=== PATIENT | male | born 1945 | race Caucasian/White ===

== ENCOUNTER → 2020-10-19 | Outpatient (CLI) | payer MEDICARE, BC ==
[2020-10-19 14:23] LABS: BASOPHILS ABSOLUTE AUTO 0.04 K/mm3 (0.00-0.23); BASOPHILS PERCENT AUTO 0 % (0-2); EOSINOPHILS ABSOLUTE AUTO 0.06 K/mm3 (0.00-0.68); EOSINOPHILS PERCENT AUTO 1 % (0-6); Hematocrit 42.5 % (37.0-53.0); Hemoglobin 14.3 g/dL (13.5-17.5); IMMATURE GRAN ABSOLUTE AUTO 0.07 K/mm3 (0.00-0.10); IMMATURE GRAN PERCENT AUTO 1 % (0-1); LYMPHOCYTES ABSOLUTE AUTO 1.72 K/mm3 (0.84-5.20); LYMPHOCYTES PERCENT AUTO 17 % (21-46); MONOCYTES ABSOLUTE AUTO 0.47 K/mm3 (0.16-1.47); MONOCYTES PERCENT AUTO 5 % (4-13); Mean Corpuscular HGB 31.4 pg (26.0-34.0); Mean Corpuscular HGB Conc 33.6 g/dL (31.5-36.5); Mean Corpuscular Volume 93 fL (80-100); Mean Platelet Volume 10.9 fL (9.1-12.4); NEUTROPHILS PERCENT AUTO 77 % (41-73); Platelet Count 282 K/mm3 (150-400); RDW Coefficient Variation 12.5 % (11.7-14.2); RDW Standard Deviation 42.6 fL (35.1-46.3); Red Blood Cell Count 4.56 M/mm3 (4.30-5.90); White Blood Cell Count 10.06 K/mm3 (4.00-11.30)
[2020-10-19 14:59] LABS: Alanine Aminotransfer (ALT/SGP 34 U/L (12-78); Albumin, Blood 4.1 g/dL (3.4-5.0); Albumin/Globulin Ratio 1.4 (0.8-1.8); Alk Phos 89 U/L (40-126); Anion Gap 11 mmol/L (6-16); Aspartate Aminotrans (AST/SGOT 23 U/L (12-37); Bilirubin, Total 0.5 mg/dL (0.1-1.0); Blood Urea Nitrogen 25 mg/dL (8-24); Bun/Creatinine Ratio 15.1 (12.0-20.0); CO2, Blood 25 mmol/L (21-32); Calcium, Blood 9.4 mg/dL (8.5-10.1); Chloride, Blood 102 mmol/L (98-108); Creatinine, Blood 1.66 mg/dL (0.60-1.20); Glomerular Filtration Rate 40 (60-); Glucose, Blood 196 mg/dL (70-99); Potassium, Blood 4.7 mmol/L (3.5-5.5); Sodium, Blood 138 mmol/L (136-145); Thyroid Stimulating Hormone 1.679 uIU/mL (0.360-4.800); Total Protein, Blood 7.1 g/dL (6.4-8.2)
[2020-10-19 15:00] LABS: Troponin I <0.017 ng/mL (0.000-0.040)
== END ==
LOC: LAB SHORT 14:17
PROVIDERS: Physician Assistant
DX: R00.2 Palpitations (principal); R73.9 Hyperglycemia, unspecified
CPT/HCPCS: 80053; 83036; 84443; 84484; 85025

== ENCOUNTER → 2024-03-22 | Outpatient (CLI) | payer MEDICARE, BC ==
[2024-03-22 12:04] LABS: BASOPHILS ABSOLUTE AUTO 0.04 K/mm3 (0.00-0.23); BASOPHILS PERCENT AUTO 1 % (0-2); EOSINOPHILS ABSOLUTE AUTO 0.03 K/mm3 (0.00-0.68); EOSINOPHILS PERCENT AUTO 0 % (0-6); Hemoglobin 13.6 g/dL (13.5-17.5); IMMATURE GRAN ABSOLUTE AUTO 0.03 K/mm3 (0.00-0.10); IMMATURE GRAN PERCENT AUTO 0 % (0-1); LYMPHOCYTES ABSOLUTE AUTO 1.38 K/mm3 (0.84-5.20); LYMPHOCYTES PERCENT AUTO 18 % (21-46); MONOCYTES ABSOLUTE AUTO 0.37 K/mm3 (0.16-1.47); MONOCYTES PERCENT AUTO 5 % (4-13); Mean Corpuscular HGB 32.2 pg (26.0-34.0); Mean Corpuscular Volume 95 fL (80-100); Mean Platelet Volume 10.6 fL (9.1-12.4); NEUTROPHILS ABSOLUTE AUTO 5.64 K/mm3 (1.96-9.15); NEUTROPHILS PERCENT AUTO 75 % (41-73); Platelet Count 261 K/mm3 (150-400); RDW Coefficient Variation 11.9 % (11.7-14.2); RDW Standard Deviation 41.7 fL (35.1-46.3); Red Blood Cell Count 4.23 M/mm3 (4.30-5.90); White Blood Cell Count 7.49 K/mm3 (4.00-11.30)
[2024-03-22 12:27] LABS: Albumin, Blood 3.9 g/dL (3.4-5.0); Albumin/Globulin Ratio 1.2 (0.8-1.8); Bilirubin, Total 0.7 mg/dL (0.1-1.0); Bun/Creatinine Ratio 13.3 (12.0-20.0); Calcium, Blood 9.5 mg/dL (8.5-10.1); Creatinine, Blood 1.58 mg/dL (0.60-1.20); Globulin, Blood 3.2 g/dL (2.2-4.0); Potassium, Blood 4.3 mmol/L (3.5-5.5); Thyroid Stimulating Hormone 1.531 uIU/mL (0.360-4.800); Total Protein, Blood 7.1 g/dL (6.4-8.2)
== END | disposition home or self-care (01) ==
LOC: LAB SHORT 11:58 → LAB 11:58
PROVIDERS: Physician Assistant
DX: E03.8 Other specified hypothyroidism (principal); G25.2 Other specified forms of tremor
CPT/HCPCS: 80053; 84443; 85025